=== PATIENT | female | born 1965 | race Caucasian/White ===

== ENCOUNTER 2018-06-21 14:20 | Inpatient (IN) | payer BC ==
[~2018-06-21 14:20] MED LIST: CEFAZOLIN 1 GM INJ; DEXAMETHASONE 4 MG/ML 1 ML INJ; EPINEPHrine 1 MG INJ; LIDOCAINE 2% (SDV) 5 ML INJ; METOCLOPRAMIDE 10 MG INJ; ROPIVACAINE 0.5 % 30 ML VIAL
[2018-06-21] MEDS: LACTATED RINGER'S 1,000 ML IV ×2 (15:34→18:47)
[2018-06-21] MEDS ORDERED: MIDAZOLAM 1 MG/ML 2 ML INJ (16:48)
[2018-06-21] MEDS ORDERED: FENTAnyl 50 MCG/ML VIAL (16:48)
[2018-06-21] MEDS ORDERED: PROPOFOL 20 ML (16:48)
[2018-06-21] MEDS ORDERED: ONDANSETRON 4 MG INJ (16:49)
[2018-06-21] MEDS ORDERED: ROCURONIUM 50 MG INJ (16:49)
[2018-06-21] MEDS ORDERED: SUCCINYLCHOLINE CHLORIDE 100 MG/5 ML SYG IV (16:49)
[2018-06-21] MEDS ORDERED: BUPIVACAINE 0.5%/EPI (SDV) 30 ML INJ (18:46)
[2018-06-21] MEDS ORDERED: FENTAnyl 50 MCG/ML VIAL IV ×2 (19:00)
[2018-06-21] MEDS ORDERED: HYDROmorphONE 1 MG/5 ML IV SYRINGE IV ×3 (19:00)
[2018-06-21] MEDS: CEFAZOLIN 2 GM/50 ML (PMX) 50 ML IVPB (19:00)
[2018-06-21] MEDS ORDERED: ONDANSETRON 4 MG INJ IV (19:00)
[2018-06-21] MEDS ORDERED: DIPHENHYDRAMINE 50 MG INJ IV (19:00)
[2018-06-21] MEDS: BUPIVACAINE 0.5%/EPI (SDV) 10 ML INJ INJ (19:50)
[2018-06-21] MEDS ORDERED: INDIGOTINDISULFONATE 0.8% 5 ML INJ (20:44)
[2018-06-21] MEDS ORDERED: FUROSEMIDE 20 MG INJ (21:01)
[2018-06-21] MEDS: MEPERIDINE 25 MG INJ IV (21:46)
[2018-06-21] MEDS ORDERED: ACETAMINOPHEN 325 MG TAB PO (22:00)
[2018-06-22 00:51] LABS: HEMATOCRIT 36.9 % (37.0-47.0); HEMOGLOBIN 12.7 g/dl (12.0-16.0)
[2018-06-22] MEDS: LACTATED RINGER'S 1,000 ML IV ×4 (02:17→18:47)
[2018-06-22 08:23] LABS: ADD MAN DIFF? NO
[2018-06-22] MEDS: IBUPROFEN 600 MG TAB PO (08:30)
[2018-06-22] MEDS: HYDROCODONE/APAP (5/325) TAB PO (08:30)
[2018-06-22 08:31] LABS: BASOPHILS % 0.3 % (0.0-2.0); HEMATOCRIT 39.1 % (37.0-47.0); HEMOGLOBIN 13.1 g/dl (12.0-16.0); LYMPHOCYTES # 0.9 10^3/ul (0.8-2.9); LYMPHOCYTES % 10.7 % (15.0-51.0); MEAN CORPUSCULAR HEMOGLOBIN 31.9 pg (29.0-33.0); MEAN CORPUSCULAR HGB CONC 33.5 g/dl (32.0-37.0); MEAN CORPUSCULAR VOLUME 95.1 fl (82.0-101.0); MEAN PLATELET VOLUME 10.8 fl (7.4-10.4); MONOCYTE # 0.5 10^3/ul (0.3-0.9); MONOCYTES % 5.9 % (0.0-11.0); NEUTROPHIL # 6.6 10^3/ul (1.6-7.5); NEUTROPHILS % 82.7 % (39.0-77.0); PLATELET COUNT 205 10^3/UL (140-415); RED BLOOD COUNT 4.11 10^6/ul (4.20-5.40); RED CELL DISTRIBUTION WIDTH 12.6 % (11.5-14.5)
[2018-06-22 09:00] LABS: ANION GAP 13 (8-16); BLOOD UREA NITROGEN 9 mg/dl (7-20); CALCIUM 9.6 mg/dl (8.4-10.2); CARBON DIOXIDE 24 mmol/L (21-31); CHLORIDE 105 mmol/L (97-110); CREATININE 0.61 mg/dl (0.44-1.00); GLUCOSE 104 mg/dl (70-220); SODIUM 138 mmol/L (135-144)
[2018-06-22 12:19] LABS: ADD MAN DIFF? NO
[2018-06-22 12:24] LABS: BASOPHILS % 0.3 % (0.0-2.0); HEMATOCRIT 38.8 % (37.0-47.0); HEMOGLOBIN 13.2 g/dl (12.0-16.0); LYMPHOCYTES # 1.6 10^3/ul (0.8-2.9); LYMPHOCYTES % 17.4 % (15.0-51.0); MEAN CORPUSCULAR HEMOGLOBIN 32.3 pg (29.0-33.0); MEAN CORPUSCULAR VOLUME 94.9 fl (82.0-101.0); MEAN PLATELET VOLUME 10.9 fl (7.4-10.4); MONOCYTE # 0.9 10^3/ul (0.3-0.9); NEUTROPHIL # 6.6 10^3/ul (1.6-7.5); PLATELET COUNT 203 10^3/UL (140-415); RED BLOOD COUNT 4.09 10^6/ul (4.20-5.40); RED CELL DISTRIBUTION WIDTH 12.6 % (11.5-14.5)
[2018-06-22 12:24] LABS: WHITE BLOOD COUNT 9.2 10^3/ul (4.8-10.8)
== END 2018-06-22 20:05 | disposition home or self-care (01) | DRG 743 ==
LOC: REC 14:20 → MS1 20:05 → REC 20:08 → 2NE 23:00
PROC: 0UT20ZZ Resection of Bilateral Ovaries, Open Approach (ICD-10-PCS; principal; 2018-06-21 17:30)
DX: N83.202 Unspecified ovarian cyst, left side (principal); N80.1 Endometriosis of ovary; N83.201 Unspecified ovarian cyst, right side; N95.9 Unspecified menopausal and perimenopausal disorder; Z53.31 Laparoscopic surgical procedure converted to open procedure
CPT/HCPCS: 80048; 85014; 85018; 85025; 86850; 86900; 86901